=== PATIENT | male | born 1985 | race Caucasian/White ===

== ENCOUNTER 2018-06-05 11:53 | Emergency (ER) | payer OTHER ==
[~2018-06-05] VITALS: Ht 177.8 cm; Wt 106.6 kg
[2018-06-05 11:54] VITALS: BP 148/88
[2018-06-05] MEDS ORDERED: IBUPROFEN 800800 M1 PO (12:46)
== END 2018-06-05 12:50 | disposition home or self-care (01) ==
LOC: ER 11:53
DX: S93.492A Sprain of other ligament of left ankle, initial encounter (principal); F17.210 Nicotine dependence, cigarettes, uncomplicated; J45.909 Unspecified asthma, uncomplicated; W10.9XXA Fall (on) (from) unspecified stairs and steps, initial encounter; Y92.89 Other specified places as the place of occurrence of the external cause; Y93.89 Activity, other specified; Y99.8 Other external cause status